=== PATIENT | female | born 1975 | race Two or more races ===

== ENCOUNTER 2017-02-03 10:59 | Emergency (ER) | payer OTHER ==
[~2017-02-03] VITALS: Ht 175.3 cm; Wt 65.8 kg
[2017-02-03 11:04] VITALS: BP 135/81
[2017-02-03] MEDS ORDERED: DIAZEPAM 5 MG/ML 2 ML DISP.SYRIN IM ONE (11:30)
[2017-02-03] MEDS ORDERED: DIAZEPAM 5 MG/ML 2 ML DISP.SYRIN ONE (11:30)
[2017-02-03] MEDS ORDERED: CYCLOBENZAPRINE 10 MG TABLET PO ONE (11:30)
[2017-02-03] MEDS ORDERED: IBUPROFEN 600 MG TABLET PO ONE ×2 (11:30)
[2017-02-03] MEDS ORDERED: CYCLOBENZAPRINE 10 MG TABLET ONE (11:30)
[2017-02-03] MEDS ORDERED: ONDANSETRON 4 MG TAB.RAPDIS ONE (12:57)
[2017-02-03] MEDS ORDERED: MORPHINE SULFATE INJ 4 MG/ML DISP.SYRIN ONE (12:57)
--- NOTE | 2017-02-03 12:57 | NUR ---
PT DOES NOT HAVE IV ACCESS; ORDER CLARIFIED WITH DR THOMPSON. PER , GIVE MORPHINE 4MG IM AND ZOFRAN 4MG ODT.
[2017-02-03] MEDS ORDERED: ONDANSETRON HCL/PF 4 MG/2 ML VIAL IV ONE (13:00)
[2017-02-03] MEDS ORDERED: MORPHINE SULFATE INJ 2 MG/ML DISP.SYRIN IV ONE (13:00)
--- NOTE | 2017-02-03 14:08 | NUR ---
DISPENSED SOFT C-COLLAR PER MD. HARD C-COLLAR REMOVED AND REPLACED WITH SOFT COLLAR.
== END 2017-02-03 14:13 | disposition home or self-care (01) ==
LOC: ER 11:01
DX: M62.838 Other muscle spasm (principal); M54.2 Cervicalgia
CPT/HCPCS: 96372 ×2; 99284; A4606; J2270; J3360; Q0162; Z7610